=== PATIENT | female | born 1985 | race Caucasian/White ===

== ENCOUNTER 2019-09-21 00:30 | Day surgery (SDC) | payer OTHER, SELFPAY ==
[2019-09-07 15:21] VITALS: BMI 21.9
[2019-09-21] VITALS (9 sets, daily range): BP systolic 95–132; BP diastolic 60–96; PULSE 68–120; RESP 13–20; TEMP 36.9–37.1; O2SAT 97–100
--- NOTE | 2019-09-21 11:26 | WPDHPUPDATE1 ---
History and Physical Update Update Date/Time: 09/21/19 11:26 History and Physical has been reviewed, including an updated exam of the patient. There are NO changes in the patient's condition. Risks, benefits, and alternatives have been discussed and questions answered. Patient agrees to proceed with procedure.
--- NOTE | 2019-09-21 11:32 | WPDANESEPPF ---
Anes - Initial Pre Proc Eval Procedure: Operation Date: 09/21/19 12:30 Proposed Procedures p Bilateral Breast Augmentation - Reginald Winchester MD Date/Time: 09/21/19 11:32 Surgeon: Reginald Winchester MD Pre Op Diagnosis: Micromastia Patient Data Age: 33 Gender: F Height: 5 ft Weight: 50.8 kg Allergies Allergy/AdvReac Type Severity Reaction Status Date / Time No Known Allergies Allergy Verified 09/07/19 15:21 Home Medications Medication Instructions Recorded Confirmed Type docusate sodium 100 mg capsule 100 mg PO DAILY #14 cap 08/30/19 09/07/19 Rx ondansetron HCl 4 mg tablet 4 mg PO Q8H #28 tablet 08/30/19 09/07/19 Rx carisoprodol 350 mg tablet 350 mg PO TID PRN #21 tablet 08/31/19 09/07/19 Rx oxycodone-acetaminophen 5 mg-325 1 tablet PO Q6H PRN #15 tablet 08/31/19 09/07/19 Rx mg tablet True Fix 2 cap PO DAILY 09/07/19 History spironolactone 100 mg PO DAILY 09/07/19 09/07/19 History Patient hx anesthesia problems: none Family hx anesthesia problems: none [facility] Social History Social History Smoking status: Never smoker Alcohol intake: current Anes - Eval Final PreProcedure Day of Procedure 09/21/19 11:32 Patient weight: normal Heart: regular rate and rhythm Lungs: clear to auscultation Airway: Mallampati scale class 1 Neurological: alert and oriented Last oral intake: >/= 8 hours ASA classification: II Emergent: no Anesthetic plan: proceed Anesthesia type and monitoring: general LMA and standard monitoring Informed Consent: The patient's anesthetic plan and its attendant risks and benefits were discussed with the patient/family/POA. Questions were solicited and answers provided to the satisfaction of the patient/family/POA.
[2019-09-21] MEDS: LACTATED RINGERS 1,000 ML 30 ML IV CONT ×2 (11:45→13:31)
[2019-09-21] MEDS: ceFAZolin 2 GM/D5W 50 ML 2 GM/50 ML BAG IVPB (12:18)
[2019-09-21] MEDS: LIDO 1%/EPINEPHRINE 1:100,000 20 ML VIAL 30 ML INFILTRATE (12:55)
--- NOTE | 2019-09-21 13:20 | PM.PROC ---
Procedure Note - Detailed Date of procedure: 09/21/19 Pre-op diagnosis: Micromastia Post-op diagnosis: same Procedure performed: Bilateral dual plane 3 augmentation mammaplasty Description of procedure: She is here today for bilateral breast augmentation. Previously and again today the risks, benefits, alternatives were discussed in extensive detail. I wanted her to be very realistic about the risks involved as well as expectations. We discussed aftercare and what to monitor for. Made sure answered all of her questions to her satisfaction today and consent was obtained. Marked in the preoperative holding area with their verification. The patient was taken to the operating room placed supine on the operating table. Anesthesia was provided by anesthesiology. A surgical time-out was taken. We cleansed the skin and 1% lidocaine and 0.25% Marcaine with epinephrine was used anesthetize as a field block. She was prepped and draped in a standard sterile fashion. Tegaderm nipple Joshi were placed. A 15 blade used to make an incision along the inframammary fold. Dissection was continued at 45 degree angle until the chest wall as identified. I elevated above the muscle in dual plane 3 fashion. I incised the pectoralis major along its inferior border and completely released the inferior border leaving the medial border intact. I created a subpectoral pocket in the appropriate dimensions based on our preoperative planning for the implant. I then copiously irrigated with saline solution and verified a strict hemostasis. Next the use a triple antibiotic and Betadine containing solution to irrigate the pocket. I washed my gloves with the triple antibiotic and Betadine solution. We washed the implant immediately upon opening it with this solution and only opened it when we needed it. I used implant funnel and no-touch technique. The implant was introduced into the pocket using the funnel. Having verified positioning of the implant this was closed using 2-0 Vicryl followed by 3-0 Monocryl in a running subcuticular 4-0 Monocryl followed by tissue glue. Fluffs, Tyron wrap, and surgical bra were placed. Patient was awoke and taken to PACU without difficulty. All instrument sponge counts were correct at the end of the case. Implants: Right: REF SSF-345 SN [id number] Left: REF SSF-345 SN [id number] Anesthesia: GLMA Surgeon: Reginald Winchester MD Estimated blood loss (mL): 40 Drains: No Packing: No Pathology: none sent Complications: No immediate complications Condition: stable Disposition: PACU
[2019-09-21] MEDS: ONDANSETRON INJ 4 MG/2 ML VIAL IV PUSH (14:04)
== END 2019-09-21 15:30 | disposition home or self-care (01) ==
PROVIDERS: PCP Internal Medicine; Visit Provider Surgery Plastic and Reconstructive Surgery
PROC: (CPT 19325; principal; 2019-09-21 12:30)
DX: Z41.1 Encounter for cosmetic surgery (principal); N64.82 Hypoplasia of breast
CPT/HCPCS: 19325; J0690; J1100; J1200; J1580; J2175; J2250; J2405; J2704; J3010; J7120

== ENCOUNTER → 2021-04-14 02:55 | Outpatient (CLI) | payer BC, SELFPAY ==
[2021-04-14 19:41] LABS: SARS-CoV-2 RNA PCR Negative
== END ==
PROVIDERS: PCP Internal Medicine; Visit Provider Obstetrics & Gynecology
DX: Z01.812 Encounter for preprocedural laboratory examination (principal); Z20.822 Contact with and (suspected) exposure to COVID-19
CPT/HCPCS: C9803; U0003; U0005

== ENCOUNTER 2021-04-15 16:28 | Outpatient (CLI) | payer BC, SELFPAY ==
[2021-04-15 17:03] LABS: Hematocrit 43.2 % (37.0-47.0); Hemoglobin 14.3 g/dL (12.0-15.0)
[2021-04-15 17:29] LABS: Anion Gap 8 mmol/L (8-16); Blood Urea Nitrogen 21 mg/dL (7-17); Calcium 9.6 mg/dL (8.4-10.2); Carbon Dioxide 27 mmol/L (22-30); Chloride 103 mmol/L (98-107); Estimated Glomerular Filt Rate > 60; Glucose 102 mg/dL (65-110); Potassium 4.3 mmol/L (3.4-5.0); Sodium 138 mmol/L (137-145)
== END 2021-04-15 16:29 | disposition home or self-care (01) ==
PROVIDERS: PCP Internal Medicine; Visit Provider Obstetrics & Gynecology
DX: L70.9 Acne, unspecified (principal); N93.9 Abnormal uterine and vaginal bleeding, unspecified
CPT/HCPCS: 36415; 80048; 85014; 85018

== ENCOUNTER 2021-04-17 01:29 | Day surgery (SDC) | payer BC, SELFPAY ==
--- NOTE | 2021-04-14 13:25 | PM.IMHP ---
H&P: HPI History of Present Illness Date/Time: 04/14/21 13:25 this is a 35-year-old female here for hysteroscopy dilatation curettage secondary to thickened endometrium and bleeding. Risks and benefits reviewed in full detail Chief Complaint: heavy bleeding with abnormal imaging Review of Systems Review of Systems: All systems reviewed & are unremarkable except as noted in HPI and below PMFSH Past Medical History Medical History Anxiety Surgical History Surgical History History of cosmetic surgery liposuction - 2005 Social History Social History Smoking status: Never smoker Alcohol intake: current Meds Home Medications and Allergies Home Medications Medication Instructions Recorded Confirmed Type docusate sodium 100 mg capsule 100 mg PO DAILY #14 cap 08/30/19 09/21/19 Rx ondansetron HCl 4 mg tablet 4 mg PO Q8H #28 tablet 08/30/19 09/21/19 Rx carisoprodol 350 mg tablet 350 mg PO TID PRN #21 tablet 08/31/19 09/21/19 Rx oxycodone-acetaminophen 5 mg-325 1 tablet PO Q6H PRN #15 tablet 08/31/19 09/21/19 Rx mg tablet True Fix 2 cap PO DAILY 09/07/19 09/21/19 History spironolactone 100 mg PO DAILY 09/07/19 09/21/19 History Allergies Allergy/AdvReac Type Severity Reaction Status Date / Time No Known Allergies Allergy Verified 09/21/19 12:04 Exam Const: General: no acute distress Eyes: General: appearance normal, both eyes and all related structures Neck: Neck: supple and no JVD Thyroid: thyroid normal Resp: Effort & Inspection: normal respiratory effort Auscultation: clear to auscultation bilaterally Cardio: Rate: regular rate Rhythm: regular rhythm GI: Inspection: non-distended GI Palp: Yes Soft to palpation, No Tenderness to palpation present (GI) and No Guarding due to palpation present (GI) Auscultation: normal bowel sounds : External Female Exam: normal external appearance Speculum Exam - Vagina: normal appearance of the vagina Speculum Exam - Cervix: normal appearance of the cervix Bimanual exam- vagina & uterus: enlarged Bimanual Exam- Adnexa, other: normal adnexae Skin: General skin exam: no rashes or lesions noted Extrem: General: normal to inspection and no edema Psych: Mental Status: mental status grossly normal Affect: normal affect Assessment and Plan Additional Plan impression: Vaginal bleeding thickened endometrium Plan: Hysteroscopy / dilatation and curettage
[2021-04-15 15:39] VITALS: BMI 25.6
--- NOTE | 2021-04-16 13:22 | WPDANESEPPF ---
Anes - Initial Pre Proc Eval Procedure: Operation Date: 04/17/21 12:15 Proposed Procedures p Hysteroscopy Dilation and Curettage - Javon Hylton MD Date/Time: 04/16/21 13:22 Surgeon: Javon Hylton MD Pre Op Diagnosis: irregular bleeding Patient Data Age: 35 Gender: F Height: 1.53 m Weight: 60 kg Allergies Allergy/AdvReac Type Severity Reaction Status Date / Time No Known Allergies Allergy Verified 04/17/21 11:15 Home Medications Medication Instructions Recorded Confirmed Type True Fix 2 cap PO DAILY 09/07/19 04/17/21 History spironolactone 100 mg PO DAILY 09/07/19 04/17/21 History Adreset 3 tab-cap PO DAILY 04/16/21 04/17/21 History Edwin 2 tab-cap PO DAILY 04/16/21 04/17/21 History L-Theanine 400 mg PO BID 04/16/21 04/17/21 History Phosphatidyl 100 mg PO BID 04/16/21 04/17/21 History s-adenosylmethionine [Juan C-E] 400 mg PO DAILY 04/16/21 04/16/21 History hydrocodone-acetaminophen 1 tablet PO Q4H PRN #20 tablet 04/17/21 Rx Patient hx anesthesia problems: none Family hx anesthesia problems: none PMFSH Past Medical History Medical History (Updated 04/17/21 @ 07:22 by Javon Hylton MD) Anxiety Surgical History Surgical History History of cosmetic surgery liposuction - 2005 Social History Social History Smoking status: Never smoker Alcohol intake: current Alcohol use details: 1 PER MONTH Substance use: never Living arrangements: with family Anes - Eval Final PreProcedure Day of Procedure 04/16/21 13:22 Patient weight: overweight Heart: regular rate and rhythm Lungs: clear to auscultation and normal air movement Airway: Mallampati scale class II Neurological: alert and oriented Last oral intake: >/= 8 hours ASA classification: II Emergent: no Anesthetic plan: proceed Anesthesia type and monitoring: general GIVS and standard monitoring Informed Consent: The patient's anesthetic plan and its attendant risks and benefits were discussed with the patient/family/POA. Questions were solicited and answers provided to the satisfaction of the patient/family/POA.
--- NOTE | 2021-04-17 07:21 | WPDHPUPDATE1 ---
History and Physical Update Update Date/Time: 04/17/21 07:21 History and Physical has been reviewed, including an updated exam of the patient. There are NO changes in the patient's condition. Risks, benefits, and alternatives have been discussed and questions answered. Patient agrees to proceed with procedure.
--- NOTE | 2021-04-17 11:12 | SUR.PREOP ---
patient notified that there is approx 1 hour surgery delay
[2021-04-17] MEDS: ACETAMINOPHEN 500 MG TABLET 1000 MG PO (11:19)
[2021-04-17] MEDS: LACTATED RINGERS 1,000 ML 30 ML IV CONT (11:27)
[2021-04-17 12:04] VITALS: BP 105/76; PULSE 63; RESP 16; TEMP 37.6; O2SAT 99
--- NOTE | 2021-04-17 13:35 | P.OP_ITS ---
Procedure Note - Detailed Date of Procedure 04/17/21 Pre-op Diagnosis irregular bleeding Post-op Diagnosis same Procedure Performed Hysteroscopy/dilatation curettage Surgeon Javon Hylton MD Anesthesia MAC and local Indications This is a 35-year-old female with irregular excessive bleeding refractory to me dical therapy Findings Uterus sounded to 9cm. Thick irregular endometrium was present but no evidence of polyp or definitive pathology. Description of Procedure Patient was prepped draped in the normal sterile fashion placed in the dorsal lithotomy position. Under excellent IV sedation weighted speculum placed in posterior fornix. The anterior lip of the cervix grasped with a single-tooth tenaculum and 2.5cc of 1% xylocaine anesthesia placed at 2, 4, 8, 10:00 a.m. of the cervix. The uterus sounded to 9cm. Serial dilatation with fragmented dilators performed. This was followed by passage of the 5mm visualizing hysteroscope using normal saline as visualizing medium. Thick irregular endome trial was present the evidence of polyp or definitive abnormality. Each fallopian tube os could be seen. The uterus was then scraped over the entire 360? until a good grating sound was heard. There were no further tissue removed the instruments removed. Patient was went to recovery in satisfactory condition. All sponge, needle, instrument counts were correct. There were no immediate complications Estimated Blood Loss 5 Drains No Pathology yes Complications No immediate complications Condition stable Disposition PACU
[2021-04-17 13:40] VITALS: BP 111/74; PULSE 70; RESP 12; O2SAT 97
[2021-04-17 14:00] VITALS: BP 103/64; PULSE 57; RESP 12
--- NOTE | 2021-04-17 15:33 | SUR.PHASEII ---
1430 PT LEFT PRESCRIPTION FOR HYDROCODONE IN ROOM WHEN SHE WAS DISCHARGED. PT WAS CALLED AND SHE STATED THAT SHE DIDN'T WANT THE PRESCRIPTION. PRESCRIPTION WAS DESTROYED.
== END 2021-04-17 14:23 | disposition home or self-care (01) ==
PROVIDERS: PCP Internal Medicine; Visit Provider Obstetrics & Gynecology
PROC: 0U5B8ZZ Destruction of Endometrium, Via Natural or Artificial Opening Endoscopic (ICD-10-PCS; CPT 58563; principal; 2021-04-17 12:15)
DX: N92.6 Irregular menstruation, unspecified (principal); F41.9 Anxiety disorder, unspecified
CPT/HCPCS: 58558; 88305; A9270; J2250; J2704; J3010; J7030; J7120